=== PATIENT | male | born 1980 | race Caucasian/White ===

== ENCOUNTER 2018-01-16 08:08 | Emergency (ER) | payer OTHER ==
[~2018-01-16] VITALS: Ht 180.3 cm; Wt 90.7 kg
[~2018-01-16 08:08] MED LIST: ACETAMINOPHEN-1 EAC1 PO; AMOXICILLIN 50500 M1 PO; AMOXICILLIN 50500 MG PO; AMOXICILLIN500 M1 PO; AMOXIL 875 MG875 M1 PO; AUGMENTIN 875875 MG PO; BYSTOLIC 5 MG5 M1; BYSTOLIC 5 MG5 MG PO; CIPROFLOXACIN500 M1 PO; CLEOCIN HCL150 MG PO; CLEOCIN HCL300 MG; FLEXERIL PO; GUAIFENESIN WI120 ML PO; HYDROCHLOROTHIA25 M2 PO; HYDROCODON-ACE1 EAC7 PO; HYDROCODON-ACE1 EACH PO; HYDROCODONE-AP1 EAC6 PO; IBUPROFEN 600600 M1 PO; IBUPROFEN 800800 M1 PO; IBUPROFEN 800800 MG PO; LIDOCAINE VISC100 M1 MM; LISINOPRIL5 MG PO; LODINE 200MG C200 M1 PO; MEDROLDOSEPACK PO; MOBIC15 MG; MOTRIN IB200 M1 PO; NAPROSYN500 MG PO; NOHOMEMEDICATIONS; NORCO 5-325 TA1 EACH PO; PENICILLIN V P500 MG PO; PENICILLIN VK500 M1 PO; PENICILLIN VK500 MG PO; PERCOCET 5-3251 EACH PO; PERCOCET PO; PREDNISONE 20 M20 MG PO; PRINIVIL20 MG PO; ROBAXIN 750 MG750 M1 PO; ROBAXIN 750 MG750 MG PO; TRAMADOL 50 MG50 MG PO; ULTRAM 50MG TAB50 MG PO; VENTOLIN HFA 1818 GM INH; VICODIN 5-5001 EACH PO; VOLTAREN GEL 1100 G2 TOP; ZOFRAN ODT4 MG SUBLING
[2018-01-16] MEDS ORDERED: AMOXICILLIN 50500 MG PO (08:24)
[2018-01-16] MEDS ORDERED: ULTRAM 50MG TAB50 MG PO (08:24)
[2018-01-16 08:35] VITALS: BP 186/121
== END 2018-01-16 08:36 | disposition home or self-care (01) ==
LOC: M.ERS 08:08
DX: J32.0 Chronic maxillary sinusitis (principal); J45.909 Unspecified asthma, uncomplicated; I10 Essential (primary) hypertension; M10.9 Gout, unspecified; Z88.6 Allergy status to analgesic agent

== ENCOUNTER 2020-07-16 11:48 | Emergency (ER) | payer OTHER ==
[~2020-07-16] VITALS: Ht 175.3 cm; Wt 104.3 kg
[2020-07-16] MEDS ORDERED: PROAIR HFA8.5 GM INH (12:04)
[2020-07-16] MEDS ORDERED: FLEXERIL PO (12:29)
[2020-07-16] MEDS ORDERED: MEDROLDOSEPACK PO (12:29)
[2020-07-16] MEDS ORDERED: NORCO 5-325 TA1 EAC2 PO (12:29)
[2020-07-16 12:40] VITALS: BP 175/76
== END 2020-07-16 12:41 | disposition home or self-care (01) ==
LOC: M.ERS 11:48
DX: M54.32 Sciatica, left side (principal); J45.909 Unspecified asthma, uncomplicated; I10 Essential (primary) hypertension; Z88.8 Allergy status to other drugs, medicaments and biological substances

== ENCOUNTER 2020-09-22 17:12 | Emergency (ER) | payer OTHER ==
[~2020-09-22] VITALS: Ht 175.3 cm; Wt 108.9 kg
[~2020-09-22 17:12] MED LIST changes: +NORCO 5-325 TA1 EAC2 PO; +PROAIR HFA8.5 GM INH
[2020-09-22] MEDS ORDERED: NORCO5 PO (17:33)
[2020-09-22] MEDS ORDERED: PREDNISONE 10 M10 MG PO (17:33)
[2020-09-22 18:43] VITALS: BP 223/126
== END 2020-09-22 18:40 | disposition home or self-care (01) ==
LOC: M.ERS 17:12
DX: M10.072 Idiopathic gout, left ankle and foot (principal); J45.909 Unspecified asthma, uncomplicated; I10 Essential (primary) hypertension; Z88.8 Allergy status to other drugs, medicaments and biological substances

== ENCOUNTER 2021-04-09 11:03 | Emergency (ER) | payer OTHER ==
[~2021-04-09] VITALS: Ht 175.3 cm; Wt 106.6 kg
[~2021-04-09 11:03] MED LIST changes: +NORCO5 PO; +PREDNISONE 10 M10 MG PO
[2021-04-09 12:31] LABS: URINE BILIRUBIN NEGATIVE (Negative); URINE BLOOD 3+ (Negative); URINE CLARITY CLEAR; URINE COLOR YELLOW; URINE GLUCOSE-RANDOM NEGATIVE (Negative); URINE KETONES NEGATIVE (Negative); URINE LEUKOCYTES-REFLEX NEGATIVE (Negative); URINE NITRITE-REFLEX NEGATIVE (Negative); URINE PROTEIN TRACE (Negative); URINE UROBILINOGEN 0.2 E.U./dl (0.2-1.0)
[2021-04-09 12:40] LABS: BACTERIA-REFLEX 1-9 Few /HPF (None Seen); CASTS None Seen /LPF (None Seen); MUCUS 0-3 Light strn/LPF (None Seen); SQUAMOUS 0-3 Few /LPF (0-3); URINE WBC-REFLEX 0-5 Rare /HPF (0-5)
[2021-04-09 12:41] LABS: CRYSTALS None Seen /LPF (None Seen)
[2021-04-09] MEDS ORDERED: HYDROCODON-ACE1 EAC7 PO (13:38)
[2021-04-09] MEDS ORDERED: FLOMAX0.4 MG PO (13:38)
[2021-04-09] MEDS ORDERED: CIPRO500 M1 PO (13:38)
[2021-04-09 14:05] VITALS: BP 195/117
== END 2021-04-09 14:05 | disposition home or self-care (01) ==
LOC: M.ERS 11:03
PROVIDERS: Nurse Practitioner Family
DX: N20.0 Calculus of kidney (principal); J45.909 Unspecified asthma, uncomplicated; I10 Essential (primary) hypertension; Z98.890 Other specified postprocedural states; Z88.8 Allergy status to other drugs, medicaments and biological substances

== ENCOUNTER 2021-04-21 11:06 | Emergency (ER) | payer OTHER ==
[~2021-04-21] VITALS: Ht 175.3 cm; Wt 106.6 kg
[~2021-04-21 11:06] MED LIST changes: +CIPRO500 M1 PO; +FLOMAX0.4 MG PO
[2021-04-21] MEDS ORDERED: FLOMAX0.4 MG PO (12:48)
[2021-04-21] MEDS ORDERED: ZOFRAN ODT4 MG DISSOLVE (12:48)
[2021-04-21] MEDS ORDERED: PERCOCET PO (12:48)
[2021-04-21 12:55] VITALS: BP 168/72
== END 2021-04-21 12:55 | disposition home or self-care (01) ==
LOC: M.ERS 11:06
DX: N20.1 Calculus of ureter (principal); R33.9 Retention of urine, unspecified; J45.909 Unspecified asthma, uncomplicated; I10 Essential (primary) hypertension; R11.10 Vomiting, unspecified; Z87.442 Personal history of urinary calculi; Z98.890 Other specified postprocedural states; Z79.899 Other long term (current) drug therapy; Z79.2 Long term (current) use of antibiotics; Z88.6 Allergy status to analgesic agent; Z88.8 Allergy status to other drugs, medicaments and biological substances